=== PATIENT | female | born 1985 | race Caucasian/White ===

== ENCOUNTER 2017-09-16 10:54 | Emergency (ER) | payer SELFPAY ==
[2017-09-16 10:58] VITALS: BP 116/75; BMI 24.4
--- NOTE | 2017-09-16 11:32 | DR.GENAD ---
HPI - PCP Primary Care Physician: NFD - Complaint/Symptoms Chief Complaint:: PT. C/O SORE THROAT, RIGHT SIDED EAR ACHE, COUGH, AND CHEST PRESSURE THAT BEGAN YESTERDAY. PT. STATES ON THE WAY HERE SHE FELL, TWISTING HER RIGHT ANKLE. PT. C/O PAIN TO RIGHT ANKLE. - Nurses notes reviewed Nurses Notes Review: Yes - Source History Provided: Patient - Mode of Arrival Mode of Arrival: Ambulatory - Timing Onset of Chief Complaint: 09/15/17 Came on: Gradually PMH - PMH Past Medical History: No Past Medical History Comment: Tricuspid valve insufficiency Past Surgical History: Yes Surgical History: , Other Past Surgical History Comment: TRICUPSID VALVE REPAIR - Family History History of Family Medical Conditions: No - Social History Does patient currently use any type of tobacco product: No Have you used tobacco products in the last 12 months: No Type of Tobacco Use: None Does any household member use tobacco: No Alcohol Use: None Do you use any recreational Drugs:: No Lives With: Friend Lives Where: Home - infectious screening In the last 2 months have you had wt loss of >10#?: NO Have you had fever, night sweats or hemotysis?: No Have you traveled outside the country in the last 6 months?: No Isolation: Standard ROS - Review of Systems Constitutional: No Symptoms Reported Eyes: No Symptoms Reported ENTM: Ear Pain (right), Throat Pain Respiratoy: Non-Productive Cough Cardiovascular: No Symptoms Reported Gastrointestinal/Abdominal: No Symptoms Reported Genitourinary: No Symptoms Reported Neurological: No Symptoms Reported Musculoskeletal: No Symptoms Reported Integumentary: No Symptoms Reported Hematologic/Lymphatic: No Symptoms Reported Endocrine: No Symptoms Reported Psychiatric: No Symptoms Reported All Other Systems: Reviewed and Negative PE - Vital Signs Vitals: Temperature 99.3 F Pulse Rate 105 Respiratory Rate 17 Blood Pressure 116/75 O2 Sat by Pulse Oximetry 97 - General Limitations: No Limitations General Appearance: Alert, In No Apparent Distress - Head Head Exam: Normal Inspection - Eyes Eye exam: Normal Appearance - ENT ENT Exam: Normal Exam, Normal Oropharynx, Normal External Ear Exam, Mucous Membranes Moist, TM's Normal Bilaterally - Neck Neck Exam: Normal Inspection - Chest Chest Inspection: Normal Inspection, Other (Healed, vertical anterior thoracotomy scar.) - Respiratory Respiratory Exam: Normal Lung Sounds Bilat - Cardiovascular Cardiovascular Exam: Regular Rate, Normal Rhythm - Abdominal Exam Abdominal Exam: Normal Inspection, Normal Bowel Sounds, Soft - Extremities Extremities Exam: Normal Inspection, Full ROM, Tenderness (with movement/ROM rt. ankle.), Normal Capillary Refill. negative: Edema, Joint Swelling, Calf Tenderness - Back Back Exam: Normal Inspection - Neurologic Neurological Exam: Alert, Oriented X3, CN II-XII Intact - Psychiatric Psychiatric Exam: Normal Affect, Normal Mood - Skin Skin Exam: Warm, Dry, Intact, Normal Color ROR - Labs Reviewed Laboratory: S. pyogenes (TEM-PCR) Not detected (NOT DETECT) 09/16/17 11:40 - XRAY XRAY Interpreted by: Self (sternotomy wires noted. there is no infiltrate noted. ) - Diagnosis Discharge Problem: Upper respiratory infection - Discharge Plan Disposition: 01 HOME, SELF-CARE Condition: Stable - Follow ups/Referrals Follow ups/Referrals: NFD,None [Primary Care Provider] - 3 days - Instructions Instructions: Viral Respiratory Infection, [id number]
--- NOTE | 2017-09-16 12:52 | RAD ---
HISTORY: Cough. Chest pressure. Study: AP portable chest Comparison: None Findings: The lungs are clear. The heart size is normal. No acute bony abnormalities are identified. The pat ient is status post median sternotomy. IMPRESSION: 1. No radiographic evidence of acute cardiopulmonary disease. Reported By:
== END 2017-09-16 13:22 | disposition home or self-care (01) ==
LOC: ER 11:04
DX: J06.9 Acute upper respiratory infection, unspecified (principal)
CPT/HCPCS: 71045; 87651; 99282